=== PATIENT | female | born 1970 | race Caucasian/White ===

== ENCOUNTER 2017-03-01 11:37 | Day surgery (SDC) | payer MEDICARE, OTHER ==
[~2017-03-01] VITALS: Ht 162.6 cm; Wt 91.0 kg
[~2017-03-01 11:37] MED LIST: ALPR1TAB2 PO; MILN50TA PO; OXYC30TA PO; PRAV10TA43 PO; RANI300T3 PO; VILA40TA PO; ZOLP10TA PO
[2017-03-01 12:07] VITALS: Ht 162.6 cm; Wt 91.0 kg
[2017-03-01] MEDS ORDERED: MET25 PO (12:15)
[2017-03-01] MEDS ORDERED: BACL20TA PO (12:15)
[2017-03-01] MEDS ORDERED: ROPI0.5T2 PO (12:15)
[2017-03-01] MEDS ORDERED: FOLI0.4T2 PO (12:15)
[2017-03-01] MEDS ORDERED: DEXL60CA2 PO (12:15)
[2017-03-01] MEDS ORDERED: LINA290C PO (12:15)
[2017-03-01 12:44] VITALS: BP 121/59; PULSE 89; RESP 16
[2017-03-01] MEDS ORDERED: PROPOFOL 20 ML ONE (13:24)
[2017-03-01] MEDS ORDERED: LIDOCAINE 2% (SDV) 5 ML INJ ONE (13:24)
--- NOTE | 2017-03-01 13:36 | OPPN ---
Date/Time of Note Date/Time of Note DATE: 03/01/17 TIME: 13:35 Operative Report Preoperative Diagnosis Abdominal pain Chronic heartburn Postoperative Diagnosis Gastroesophageal reflux disease Gastritis Operation/Procedure Performed Esophagogastroduodenoscopy and biopsy Surgeon see signature line assisted living nursing director None Anesthesia: MAC Estimated blood loss: none Transfusion Required none Specimen Gastric mucosal biopsy Grafts/Implants none Complications none MARIELA LAGOS MD Mar 01, 2017 13:36
--- NOTE | 2017-03-01 20:04 | GILP ---
DATE OF PROCEDURE: NAME OF PROCEDURE: Esophagogastroduodenoscopy and biopsy. SURGEON: Mariela Paredes MD PREOPERATIVE DIAGNOSES: 1. Abdominal pain. 2. Chronic heartburn. POSTOPERATIVE DIAGNOSES: 1. Gastroesophageal reflux disease. 2. Gastritis. 3. Gastric mucosal biopsies were taken for Helicobacter pylori test. INDICATION FOR THE PROCEDURE: Ms. Giorgio Wong is a 46-year-old female patient who had upper abd ominal pain and chronic heartburn not responding to therapy. The patient was scheduled for endoscop ic examination for further evaluation. The procedure and possible complications were well explained to the patient, she understood and cons ented to the procedure. DESCRIPTION OF PROCEDURE: Under the influence of anesthesia, the gastroscope was carefully introduc ed into the esophagus and under direct vision, it was advanced to the stomach and through the pyloru s into the duodenal bulb and descending duodenum. FINDINGS: ESOPHAGUS: The patient had gastroesophageal reflux disease. STOMACH: She had gastritis with erosions. Gastric mucosal biopsies were taken for H. pylori test. DUODENUM: Normal. She tolerated the procedure very well and there was no complication from the procedure. At the end of the procedure, she was awake with stable vital signs and she was discharged home to the care of h er family. IMPRESSION: Please see postoperative diagnoses. PLAN: 1. Continue Dexilant and Zantac. 2. Bentyl p.r.n. for pain. 3. Await H. pylori test report. Dictated By: MARIELA SANCHEZ/HÉCTOR Conf#: [id number] DID#: [id number]
--- NOTE | 2017-03-03 15:25 | CONS ---
DATE OF ADMISSION: 03/01/2017 DATE OF CONSULTATION: PATIENT NAME: BOBBI SUTTON PREOPERATIVE GASTROENTEROLOGY CONSULTATION NOTE HISTORY OF PRESENT ILLNESS: Ms. Giorgio Sutton is a 46-year-old female patient who has been referr ed to me for further evaluation of upper abdominal pain associated with bloating and chronic heartbu rn. The patient has been taking Dexilant and Zantac without relief. The patient has been taking pa in medications for the back. She is status post lumbar fusion. No history of gallstones. She has history of fatty liver. The patient complains of alternating constipation and diarrhea. She has be en taking Linzess for constipation. No rectal bleeding. Not a hypertensive or diabetic. No heart disease, lung problem or kidney disease. She has fibromyalgia. She also has rheumatoid arthritis. Nonsmoker. No alcohol abuse. No family history of gastrointestinal tract neoplasm. NO DRUG ALLER GIES. MEDICATIONS: 1. [place] 3 tablets a day p.o. 2. Zantac 300 mg p.o. at bedtime. 3. Dexilant 60 mg p.o. daily. 4. Savella 50 mg p.o. twice daily. 5. Linzess 290 mcg p.o. daily a.m. 6. Methotrexate 2.5 mg p.o. daily. 7. Xanax p.r.n. PHYSICAL EXAMINATION: VITAL SIGNS: She is 5 feet 4 inches tall and she weighs 200 pounds. BMI 34. Blood pressure 136/78 . HEART: Normal heart sounds. LUNGS: Clear. ABDOMEN: Soft. No masses. Normal bowel sounds. NEUROLOGIC: Normal neurological exam. IMPRESSION: 1. Upper abdominal pain associated with bloating and chronic heartburn, not responding to therapy w ith the Dexilant and Zantac. 2. Patient has been taking pain medications for the back. 3. Alternating constipation and diarrhea. 4. The patient had colonoscopy 1 year ago and no colitis or neoplasm was identified. 5. Fibromyalgia. 6. Rheumatoid arthritis. 7. Elevated BMI. PLAN: 1. Continue Dexilant, Zantac and Linzess. 2. Bentyl 10 mg p.o. t.i.d. p.r.n. for abdominal pain or diarrhea. 3. Endoscopic examination for further evaluation. 4. Because of the obesity with a short thick neck, she will need monitored anesthesia care for the procedure. The procedure and possible complications were well explained to the patient, she understands and con sents to the procedure. I thank you once again. Dictated By: MARIELA SANCHEZ/HÉCTOR Conf#: [id number] DID#: [id number]
== END 2017-03-01 15:32 | disposition home or self-care (01) ==
LOC: GIL 11:37
PROVIDERS: ATTEND Internal Medicine Gastroenterology
DX: K21.9 Gastro-esophageal reflux disease without esophagitis (principal); K29.70 Gastritis, unspecified, without bleeding; M06.9 Rheumatoid arthritis, unspecified
CPT/HCPCS: 87081

== ENCOUNTER → 2017-05-03 | Outpatient (CLI) | END | disposition home or self-care (01) ==

== ENCOUNTER 2018-11-23 08:00 | Day surgery (SDC) | payer MEDICARE, OTHER ==
[~2018-11-23] VITALS: Ht 162.6 cm; Wt 77.9 kg
[~2018-11-23 08:00] MED LIST changes: +BACL20TA PO; +DEXL60CA2 PO; +FOLI0.4T2 PO; +LINA290C PO; +MET25 PO; -RANI300T3 PO; +ROPI0.5T2 PO
[2018-11-23 08:59] VITALS: Ht 162.6 cm; Wt 77.9 kg
[2018-11-23] MEDS ORDERED: PROPOFOL 40 ML ONE (09:37)
[2018-11-23] MEDS ORDERED: MIDAZOLAM 1 MG/ML 2 ML INJ ONE (09:37)
[2018-11-23 09:38] VITALS: BP 121/63; PULSE 61; RESP 16
--- NOTE | 2018-11-23 10:07 | PREAC ---
Date/Time of Note Date/Time of Note DATE: 11/23/18 TIME: 10:06 Anesthesia Eval and Record Evaluation Time Pre-Procedure Interview DATE: 11/23/18 TIME: 10:06 Age 48 Sex female NPO: 8 hrs Preoperative diagnosis Chronic Diarrhea Planned procedure Colonoscopy Past Medical History Past Medical History: Includes Cardio: Dyslipidemia Neuro: Other (Fibromyalgia) Musculoskeletal: Rheumatoid arthritis Hepatic: Other (Fatty Liver) Psych: Depression, Anxiety Surgery & Anesthesia Issues No known issue Meds Anticoagulation: No Beta Rc within 24 hr: No Reason Beta Rc not given: Pt. not on B-Rc Reported Medications Folic Acid* (Folic Acid*) 0.4 Mg Tablet, 0.4 MG PO DAILY, TAB 03/01/17 Ropinirole Hcl* (Ropinirole Hcl*) 0.5 Mg Tablet, 0.5 MG PO HS, TAB 03/01/17 Methotrexate* (Methotrexate*) 2.5 Mg Tab, 2.5 MG PO, TAB 03/01/17 Dexlansoprazole (Dexilant) 60 Mg Cap., 60 MG PO DAILY, #30 CAP 03/01/17 Linaclotide (LINZESS) 290 Mcg Capsule, 290 MCG PO DAILY, #30 CAP 03/01/17 Milnacipran Hcl (Savella) 50 Mg Tablet, 50 MG PO BID, TAB 03/28/16 Alprazolam* (Xanax*) 1 Mg Tab, 1 MG PO DAILY PRN for ANXIETY, TAB 03/28/16 Zolpidem Tartrate* (Ambien*) 10 Mg Tablet, 10 MG PO QHS PRN for INSOMNIA, TAB 03/28/16 Pravastatin Sodium* (Pravastatin Sodium*) 10 Mg Tablet, 10 MG PO HS, TAB 03/28/16 Oxycodone Hcl* (IR) (Oxycodone Hcl*) 30 Mg Tablet, 30 MG PO BID PRN for PAIN, TAB 03/28/16 Discontinued Reported Medications Baclofen* (Baclofen*) 20 Mg Tablet, 20 MG PO BID, TAB 03/01/17 Vilazodone Hcl (Viibryd) 40 Mg Tablet, 40 MG PO QAM, TAB 03/28/16 Meds reviewed: Yes Allergies Coded Allergies: morphine (Verified Allergy, Unknown, itching, 11/23/18) Allergies Reviewed: Yes Labs/Studies Labs Reviewed: Reviewed by anesthesiologist test: N/A Studies: ECG (n/a), CXR (n/a) Pre-procedure Exam Last vitals Vital Signs Date Temp Pulse Resp B/P (MAP) Pulse Ox O2 O2 Flow FiO2 Time Delivery Rate 11/23/18 98.2 61 16 121/63 98 Room Air 09:38 (82) Airway: Adequate mouth opening, Adequate thyromental dist Mallampati: Mallampati II Teeth: Normal Lung: Normal Heart: Normal ASA Physical Status ASA physical status: 2 Emergency: None Planned Anesthetic General/MAC: MAC Planned Pain Management Parenteral pain med Pre-operative Attestations Prior to commencing anesthesia and surgery, the patient was re-evaluated, there was verification of: *The patient's identity *The results of appropriate recent lab work and preoperative vital signs *The above evaluation not changing prior to induction *Anesthetic plan, risk benefits, alternative and complications discussed with patient/family; questions answered; patient/family understands, accepts and wishes to proceed. RAGINI FONTAINE MD Nov 23, 2018 10:07
[2018-11-23] MEDS ORDERED: PROPOFOL 20 ML ONE ×2 (11:06)
--- NOTE | 2018-11-23 11:08 | PAC ---
Date/Time of Note Date/Time of Note DATE: 11/23/18 TIME: 11:08 Post-Anesthesia Notes Post-Anesthesia Note Last documented vital signs Vital Signs Date Temp Pulse Resp B/P (MAP) Pulse Ox O2 O2 Flow FiO2 Time Delivery Rate 11/23/18 98.2 61 16 121/63 98 Room Air 11:08 (82) Activity: WNL Respiratory function: WNL Cardiovascular function: WNL Mental status: Baseline Pain reasonably controlled: Yes Hydration appropriate: Yes Nausea/Vomiting absent: Yes RAGINI FONTAINE MD Nov 23, 2018 11:08
[2018-11-23 11:25] VITALS: BP 148/75; RESP 18
== END 2018-11-23 15:06 | disposition home or self-care (01) ==
LOC: GIL 08:00
PROVIDERS: ATTEND Internal Medicine Gastroenterology
DX: K64.8 Other hemorrhoids (principal); D12.5 Benign neoplasm of sigmoid colon; M06.9 Rheumatoid arthritis, unspecified
CPT/HCPCS: 45380; 45385; 88305; J2250